=== PATIENT | male | born 1950 | race Caucasian/White ===

== ENCOUNTER → 2020-09-13 | Outpatient (CLI) | payer MEDICARE, OTHER ==
[~2020-09-13] MED LIST: ALBUTEROL; AUGMENTIN 875-1 EACH PO; BENTYL 10MG CAP10 MG PO; CETIRIZINE HCL10 MG PO; FLAGYL500 MG PO; FLONASE 0.05% N16 GM; K-DUR TAB 20 M20 MEQ PO; LOPERAMIDE2 M1 PO; MEGACE 400400 MG/10 PO; MEGESTROL PO; MIRALAX 119 GR119 GM PO; NORVASC10 MG PO; ONDANSETRON ODT4 MG SL; OXYCODONE HCL20 MG PO; PEPCID40 MG PO; PROTONIX40 MG PO; TOPROL XL100 MG PO; ZOFRAN ODT 4 MG4 MG PO; ZOFRAN4 MG PO
== END ==
LOC: OPSV2 12:00
DX: Z01.810 Encounter for preprocedural cardiovascular examination (principal); K80.20 Calculus of gallbladder without cholecystitis without obstruction
CPT/HCPCS: 93005

== ENCOUNTER 2020-10-06 12:19 | Emergency (ER) | payer MEDICARE, OTHER ==
[~2020-10-06 12:19] MED LIST changes: -AUGMENTIN 875-1 EACH PO; -FLAGYL500 MG PO; -ONDANSETRON ODT4 MG SL; -PEPCID40 MG PO
[2020-10-06 13:22] LABS: RED BLOOD COUNT 4.11 M/UL (4.20-5.50); WHITE BLOOD COUNT 5.9 K/UL (4.5-11.0)
[2020-10-06 13:46] LABS: BUN/CREATININE RATIO 12 (0-10)
[2020-10-06] MEDS ORDERED: ONDANSETRON ODT4 MG SL (15:37)
[2020-10-06] MEDS ORDERED: FLAGYL500 MG PO (15:37)
[2020-10-06] MEDS ORDERED: PEPCID40 MG PO (15:37)
[2020-10-06] MEDS ORDERED: AUGMENTIN 875-1 EACH PO (15:37)
[2020-10-06 15:43] LABS: ADENOVIRUS F 40/41 Not Detected (Negative); ASTROVIRUS Not Detected (Negative); CAMPYLOBACTER Not Detected (Negative); CLOSTRIDIUM DIFFICILE TOX A/B Not Detected (Negative); CRYPTOSPORIDIUM Not Detected (Negative); E.COLI 0157 Not Detected (Negative); ENTAMOEBA HISTOLYTICA Not Detected (Negative); ENTEROAGGREGATIVE E.COLI (EAEC Not Detected (Negative); ENTEROPATHOGENIC E.COLI (EPEC) Not Detected (Negative); ENTEROTOXIGENIC E.COLI (ETEC) Not Detected (Negative); GIARDIA LAMBLIA Not Detected (Negative); NOROVIRUS GI/GII Not Detected (Negative); PLESIOMONAS SHIGELLOIDES Not Detected (Negative); ROTOVIRUS A Not Detected (Negative); SALMONELLA Not Detected (Negative); SAPOVIRUS Not Detected (Negative); SHIG/ENTEROINVAS.ECOLI (EIEC) Not Detected (Negative); SHIGA-LIK TOX.PRO.E.COLI (STEC Not Detected (Negative); VIBRIO Not Detected (Negative); VIBRIO CHOLERAE Not Detected (Negative); YERSINIA ENTEROCOLITICA Not Detected (Negative)
[2020-11-14] MEDS ORDERED: ALLOPURINOL100 MG PO (07:44)
[2020-11-14] MEDS ORDERED: ECOTRIN81 MG PO (07:45)
[2020-11-14] MEDS ORDERED: GABAPENTIN300 MG PO (07:46)
[2020-11-14] MEDS ORDERED: ISOSORBIDE DINI30 MG PO (07:46)
== END 2020-10-06 16:05 | disposition home or self-care (01) ==
LOC: ER1 12:19
PROVIDERS: Physician Assistant
DX: K52.9 Noninfective gastroenteritis and colitis, unspecified (principal); I10 Essential (primary) hypertension; F17.210 Nicotine dependence, cigarettes, uncomplicated; Z85.038 Personal history of other malignant neoplasm of large intestine
CPT/HCPCS: 80053; 81001; 83605; 83690; 85025; 87507; 96374; 96375; 99284; J2270; J2405; J7030; Q9967

== ENCOUNTER → 2020-10-10 | Outpatient (CLI) | payer MEDICARE ==
[~2020-10-10] MED LIST changes: +ALLOPURINOL100 MG PO; +AUGMENTIN 875-1 EACH PO; +ECOTRIN81 MG PO; +FLAGYL500 MG PO; +GABAPENTIN300 MG PO; +ISOSORBIDE DINI30 MG PO; +ONDANSETRON ODT4 MG SL; +PEPCID40 MG PO
== END ==
LOC: HEART 5 09-19 07:30
DX: I10 Essential (primary) hypertension (principal); I44.7 Left bundle-branch block, unspecified
CPT/HCPCS: 78452; A9502; J2785

== ENCOUNTER → 2020-10-27 | Outpatient (CLI) | payer OTHER, MEDICARE | LOC: ECHO 10-03 11:00 | DX: I10 Essential (primary) hypertension (principal); I44.7 Left bundle-branch block, unspecified | CPT/HCPCS: ECHO; 93306 ==

== ENCOUNTER → 2020-11-10 | Outpatient (CLI) | payer OTHER, MEDICARE ==
[2020-11-10 14:06] LABS: HEMOGLOBIN 11.1 gm/dl (14.0-17.5); RED BLOOD COUNT 3.86 M/UL (4.20-5.50)
[2020-11-10 16:41] LABS: BUN/CREATININE RATIO 21 (0-10)
== END ==
LOC: LAB 12:48
PROVIDERS: Internal Medicine Interventional Cardiology
DX: R07.9 Chest pain, unspecified (principal); I10 Essential (primary) hypertension; I44.7 Left bundle-branch block, unspecified; R06.02 Shortness of breath
CPT/HCPCS: 36415; 80048; 85025; 85610; 85730

== ENCOUNTER → 2020-11-14 | Outpatient (CLI) | payer OTHER | LOC: CATH 07:04 | DX: I20.0 Unstable angina (principal); I11.9 Hypertensive heart disease without heart failure; I44.7 Left bundle-branch block, unspecified; F17.210 Nicotine dependence, cigarettes, uncomplicated; Z85.038 Personal history of other malignant neoplasm of large intestine; Z91.040 Latex allergy status; Z79.82 Long term (current) use of aspirin; Z79.899 Other long term (current) drug therapy | CPT/HCPCS: 99152; 99153; C1769; J1644; J2250; J3010; J7030; Q9965 ==